=== PATIENT | female | born 1995 | race African-American/Black ===

== ENCOUNTER 2017-05-31 21:15 | Emergency (ER) | payer BC, OTHER, SELFPAY ==
[2017-05-31] MEDS ORDERED: Ondansetron ODT 4 MG TAB ONE (21:50)
[2017-05-31 22:00] LABS: Bilirubin Negative (Negative); Blood, Urine Negative (Negative); Glucose, Urine (Dipstick) Negative (Negative); Ketone, Urine Negative (Negative); Nitrite Negative (Negative); Protein, Urine (Dipstick) Negative (Neg-Trace)
== END 2017-05-31 22:18 | disposition home or self-care (01) ==
LOC: ERS 21:15
DX: R11.0 Nausea (principal); R51 Headache; R42 Dizziness and giddiness; R10.9 Unspecified abdominal pain; F31.9 Bipolar disorder, unspecified
CPT/HCPCS: 36416; 81003; 81025; 99284; Q0162

== ENCOUNTER 2017-11-12 23:49 | Emergency (ER) | payer SELFPAY ==
[2017-11-13] MEDS ORDERED: Ibuprofen 800 MG TAB ONE (00:26)
[2017-11-13 00:51] LABS: Bilirubin Negative (Negative); Blood, Urine Negative (Negative); Clarity CLEAR (Clear); Glucose, Urine (Dipstick) Negative (Negative); Leukocyte Negative (Negative); Nitrite Negative (Negative); Pregnancy Test - Urine (BHCG) Negative (Negative); Pregu Control Background? CLEAR/WHITE (CLR/WHITE); Pregu Control Bar Appear? YES (CONTROL BAR); Protein, Urine (Dipstick) Negative (Neg-Trace); Specific Gravity, Urine 1.022 (1.002-1.036); pH, Urine 7.5 (5.0-9.0)
[2017-11-13 00:52] LABS: Specific Gravity 1.022 (1.002-1.036)
[2017-11-13 18:00] LABS: Chlamydia by PCR Not Detected (NotDetected); GC by PCR Not Detected (NotDetected)
== END 2017-11-13 02:33 | disposition home or self-care (01) ==
LOC: ERS 23:49
DX: F31.9 Bipolar disorder, unspecified; N76.0 Acute vaginitis; F41.9 Anxiety disorder, unspecified; I10 Essential (primary) hypertension
CPT/HCPCS: 81003; 81025; 87480; 87491; 87510; 87591; 87660; 99284

== ENCOUNTER 2018-01-30 01:12 | Emergency (ER) | payer OTHER, SELFPAY ==
[2018-01-30 02:13] LABS: #Eosinphils 0.1 thou/uL (0.0-0.7); #Lymphocytes 2.4 thou/uL (1.20-3.40); #Monocytes 0.6 thou/uL (0.11-0.59); #Neutrophils 5.6 thou/uL (1.40-6.50); %Basophils 0.5 % (0.0-1.0); %Eosinophils 0.8 % (0.0-10.0); %Lymphocytes 27.4 % (21.0-51.0); %Monocytes 6.8 % (0.0-10.0); %Neutrophils 64.4 % (42.0-75.0); Mean Corpuscular HGB CONC 35.9 g/dL (32.0-36.0); Mean Corpuscular Hemoglobin 32.1 pg (27.0-31.0); Mean Corpuscular Volume 89.6 fL (78.0-98.0); Mean Platelet Volume 7.2 fL (7.4-10.4); Platelet Count 213 thou/uL (130-400); RBC Distribution Width 12.1 % (11.5-14.5); Red Blood Cell (RBC) Count 3.74 mill/uL (4.20-5.40); White Blood Cell (WBC) Count 8.7 thou/uL (4.8-10.8)
[2018-01-30 02:34] LABS: ALT (SGPT) 13 U/L (8-55); AST (SGOT) 14 U/L (5-34); Albumin 4.2 g/dL (3.5-5.0); Alkaline Phosphatase 79 U/L (40-150); Anion Gap 10 mmol/L (10-20); BUN (Urea Nitrogen) 7 mg/dL (7.0-18.7); Bilirubin, Total 0.5 mg/dL (0.2-1.2); Calc. Creatinine Clearance 0 mL/min (70-130); Calcium 9.3 mg/dL (7.8-10.44); Carbon Dioxide 23 mmol/L (22-29); Chloride 104 mmol/L (98-107); Estimated GFR-MDRD Greater than 90; Globulin 2.8 g/dL (2.4-3.5); Glucose 88 mg/dL (70-105); Potassium 3.7 mmol/L (3.5-5.1); Sodium 133 mmol/L (136-145)
[2018-01-30] MEDS ORDERED: Acetaminophen 500 MG TAB ONE (02:49)
[2018-01-30 03:04] LABS: Bilirubin Negative (Negative); Blood, Urine Negative (Negative); Clarity CLEAR (Clear); Glucose, Urine (Dipstick) Negative (Negative); Leukocyte Negative (Negative); Nitrite Negative (Negative); Protein, Urine (Dipstick) Negative (Neg-Trace); Specific Gravity, Urine 1.007 (1.002-1.036); Urobilinogen 0.2 mg/dL (0.2-1.0)
== END 2018-01-30 03:30 | disposition home or self-care (01) ==
LOC: ERS 01:12
DX: O99.89 Other specified diseases and conditions complicating pregnancy, childbirth and the puerperium (principal); R10.30 Lower abdominal pain, unspecified; Z3A.09 9 weeks gestation of pregnancy; O10.911 Unspecified pre-existing hypertension complicating pregnancy, first trimester; O99.341 Other mental disorders complicating pregnancy, first trimester; F31.9 Bipolar disorder, unspecified; F41.9 Anxiety disorder, unspecified
CPT/HCPCS: 36415; 80053; 81003; 84702; 85025; 86900; 86901

== ENCOUNTER 2018-03-17 04:10 | Emergency (ER) | payer OTHER ==
[2018-03-17] MEDS ORDERED: Acetaminophen 500 MG TAB ONE (04:34)
[2018-03-17] MEDS ORDERED: Famotidine/PF 20 mg/2ml Vial ONE (04:34)
[2018-03-17] MEDS ORDERED: Metoclopramide HCl 10 MG/2 ML VIAL ONE (04:34)
[2018-03-17 05:21] LABS: #Eosinphils 0.2 thou/uL (0.0-0.7); #Lymphocytes 2.3 thou/uL (1.20-3.40); #Monocytes 0.6 thou/uL (0.11-0.59); %Basophils 0.1 % (0.0-1.0); %Eosinophils 2.2 % (0.0-10.0); %Lymphocytes 28.5 % (21.0-51.0); %Neutrophils 62.2 % (42.0-75.0); Hemoglobin 12.1 g/dL (12.0-16.0); Mean Corpuscular HGB CONC 35.3 g/dL (32.0-36.0); Mean Corpuscular Hemoglobin 31.7 pg (27.0-31.0); Mean Corpuscular Volume 89.6 fL (78.0-98.0); Platelet Count 196 thou/uL (130-400); RBC Distribution Width 12.1 % (11.5-14.5); Red Blood Cell (RBC) Count 3.82 mill/uL (4.20-5.40); White Blood Cell (WBC) Count 8.1 thou/uL (4.8-10.8)
[2018-03-17 05:34] LABS: ALT (SGPT) 10 U/L (8-55); AST (SGOT) 16 U/L (5-34); Albumin 3.8 g/dL (3.5-5.0); Alkaline Phosphatase 60 U/L (40-150); Anion Gap 12 mmol/L (10-20); BUN (Urea Nitrogen) 7 mg/dL (7.0-18.7); Bilirubin, Total 0.3 mg/dL (0.2-1.2); Calc. Creatinine Clearance 0 mL/min (70-130); Calcium 9.1 mg/dL (7.8-10.44); Carbon Dioxide 20 mmol/L (22-29); Chloride 106 mmol/L (98-107); Estimated GFR-MDRD Greater than 90; Globulin 2.9 g/dL (2.4-3.5); Glucose 87 mg/dL (70-105); Potassium 3.8 mmol/L (3.5-5.1); Protein, Total 6.7 g/dL (6.0-8.3); Sodium 134 mmol/L (136-145)
[2018-03-17 05:35] LABS: Bilirubin Negative (Negative); Blood, Urine Negative (Negative); Clarity CLEAR (Clear); Glucose, Urine (Dipstick) Negative (Negative); Leukocyte Moderate (Negative); Nitrite Negative (Negative); Protein, Urine (Dipstick) Negative (Neg-Trace); Specific Gravity, Urine 1.006 (1.002-1.036); Urobilinogen 0.2 mg/dL (0.2-1.0); pH, Urine 7.5 (5.0-9.0)
[2018-03-17 05:38] LABS: Bacteria/HPF None Seen HPF (None Seen); Hyaline Casts/LPF 0-3 HYALINE CAST LPF (0-3 Hyaline); Pathc Cast-AUWi Flag 0.29 (0-2.49); RBC/HPF 0-3 HPF (0-3); Squamous Epithelial 0-3 HPF (0-3)
[2018-03-17] MEDS ORDERED: Nitrofurantoin Monohyd/M-Cryst 100 MG CAP PO SCH (06:30)
== END 2018-03-17 06:51 | disposition home or self-care (01) ==
LOC: ERS 04:10
DX: O23.42 Unspecified infection of urinary tract in pregnancy, second trimester (principal); O16.2 Unspecified maternal hypertension, second trimester; O99.342 Other mental disorders complicating pregnancy, second trimester; F31.9 Bipolar disorder, unspecified; F41.9 Anxiety disorder, unspecified; Z79.899 Other long term (current) drug therapy; Z3A.16 16 weeks gestation of pregnancy
CPT/HCPCS: 80053; 81003; 81015; 85025; 87077; 87086; 96361; 96374; 96375; J2765; S0028

== ENCOUNTER 2018-05-01 10:40 | Emergency (ER) | payer OTHER ==
[2018-05-01 13:18] LABS: #Eosinphils 0.1 thou/uL (0.0-0.7); #Lymphocytes 1.3 thou/uL (1.20-3.40); #Monocytes 0.4 thou/uL (0.11-0.59); #Neutrophils 5.6 thou/uL (1.40-6.50); %Basophils 0.3 % (0.0-1.0); %Eosinophils 1.1 % (0.0-10.0); %Lymphocytes 17.3 % (21.0-51.0); %Monocytes 5.4 % (0.0-10.0); Mean Corpuscular HGB CONC 34.2 g/dL (32.0-36.0); Mean Corpuscular Hemoglobin 31.7 pg (27.0-31.0); Mean Corpuscular Volume 92.6 fL (78.0-98.0); Mean Platelet Volume 7.1 fL (7.4-10.4); Platelet Count 212 thou/uL (130-400); RBC Distribution Width 12.3 % (11.5-14.5); White Blood Cell (WBC) Count 7.4 thou/uL (4.8-10.8)
[2018-05-01] MEDS ORDERED: Lorazepam 1 MG TAB ONE (13:30)
[2018-05-01] MEDS ORDERED: Acetaminophen 500 MG TAB ONE (13:37)
[2018-05-01 13:43] LABS: ALT (SGPT) 8 U/L (8-55); AST (SGOT) 16 U/L (5-34); Albumin 3.6 g/dL (3.5-5.0); Alkaline Phosphatase 79 U/L (40-150); Anion Gap 8 mmol/L (10-20); BUN (Urea Nitrogen) 5 mg/dL (7.0-18.7); Bilirubin, Total 0.5 mg/dL (0.2-1.2); Calc. Creatinine Clearance 0 mL/min (70-130); Calcium 9.1 mg/dL (7.8-10.44); Carbon Dioxide 24 mmol/L (22-29); Chloride 105 mmol/L (98-107); Estimated GFR-MDRD Greater than 90; Globulin 3.4 g/dL (2.4-3.5); Glucose 106 mg/dL (70-105); Magnesium 1.7 mg/dL (1.6-2.6); Potassium 3.4 mmol/L (3.5-5.1); Sodium 134 mmol/L (136-145)
[2018-05-01 13:51] LABS: Bilirubin Negative (Negative); Blood, Urine Negative (Negative); Clarity CLEAR (Clear); Glucose, Urine (Dipstick) Negative (Negative); Leukocyte Negative (Negative); Nitrite Negative (Negative); Protein, Urine (Dipstick) Negative (Neg-Trace); pH, Urine 7.5 (5.0-9.0)
[2018-05-01 13:57] LABS: Troponin I Less than 0.010 ng/mL (< 0.028)
--- NOTE | 2018-05-01 14:40 | RAD ---
CHEST 2 VIEWS: HISTORY: Pain. Chest pressure. COMPARISON: None. FINDINGS: Normal cardiac silhouette. The pulmonary vessels and hilum are normal. Costophrenic angles are mukesh r. No mass. No consolidation. No pneumothorax or osseous abnormalities. IMPRESSION: No acute cardiopulmonary process. POS: [facility]
== END 2018-05-01 14:50 | disposition home or self-care (01) ==
LOC: ERS 10:40
DX: O99.342 Other mental disorders complicating pregnancy, second trimester (principal); F41.0 Panic disorder [episodic paroxysmal anxiety]; I10 Essential (primary) hypertension; F41.9 Anxiety disorder, unspecified; F31.9 Bipolar disorder, unspecified; Z79.899 Other long term (current) drug therapy; Z3A.22 22 weeks gestation of pregnancy
CPT/HCPCS: 36415; 71046; 80053; 81003; 83735; 83880; 84484; 85025; 93005

== ENCOUNTER 2018-07-19 22:44 | Day surgery (SDC) | payer OTHER ==
[2018-07-19 23:24] VITALS: BMI 29.4
--- NOTE | 2018-07-19 23:46 | PDOC.LDHP ---
Labor and Delivery H&P HPI: Patient of Dr Fajardo Location: Triage Tiem: [id number] CC: Contractions 22 yo with prior in past, at 34 weeks 2 days here with possible contractions. No LOF, good FM, no VB. No recent trauama. Was checked this am in the clinic and was closed. Review of Systems: complete ROS performed and negative as per HPI Current gestational age (weeks): 34 (2 days) Dating criteria: last menstrual period Grav: 3 Para: 1 OB History Details: Hx Current complications: none Abnormal US findings: No Past Medical History: HX Bipolar; not on meds (no acute sxs) Current medications: pre-chris vitamins Allergies/Adverse Reactions: Allergies Allergy/AdvReac Type Severity Reaction Status Date / Time metronidazole [From Flagyl] Allergy Rash Verified 07/19/18 23:15 - Physical Exam Vital signs reviewed and normal: yes (107/62 89 afebrile 100% O2 sat on RA) General: NAD Heart: RRR Lungs: CTAB Abdomen: gravid Extremeties: no edema FHT: category 1 [place] contractions every: irritablity - Vaginal Exam cm dilated: 0 Effacement: 0% Station: -2 - Assessment Discomforts of ; [place] CTX - Plan Plan: observation in L&D (Offer pain meds prn; no evidence dilation;l normotensive; ok for outpatient care)
== END 2018-07-20 00:05 | disposition home or self-care (01) ==
LOC: L&D/OP 22:44
PROVIDERS: ATTEND Family Medicine
DX: O47.03 False labor before 37 completed weeks of gestation, third trimester (principal); O99.343 Other mental disorders complicating pregnancy, third trimester; F31.9 Bipolar disorder, unspecified; Z88.1 Allergy status to other antibiotic agents; Z3A.34 34 weeks gestation of pregnancy
CPT/HCPCS: 99282

== ENCOUNTER 2018-08-12 15:35 | Day surgery (SDC) | payer OTHER ==
[2018-08-12 16:13] VITALS: BP 114/65; TEMP 98.3; BMI 29.4
[2018-08-12] MEDS ORDERED: Acetaminophen 500 MG TAB PO SCH (17:15)
--- NOTE | 2018-08-12 17:16 | PDOC.LDHP ---
Labor and Delivery H&P Chief complaint: abdominal pain HPI: 23 yo at 37.5w by reported 1T macarena presents to L&D with 2 days of abdominal pain. She reports the pain is in her lower abdomen and is a cramping pain but feels constant. She is also feeling superimposed contractions irregularly. She denies any vaginal bleeding, dysuria, hematuria and endorses good movement. She also has had a headache since yesterday that has not improved with Tylenol. She states she has had some spots in her vision all . She had gestational HTN in prior . PMHx: GHTN in prior , anemia, depression, anxiety, bipolar (on no meds) PSHx: D&C FHx: DM, HTN, Breast CA in maternal grandmother ALL: Metronidazole (rash) SocHx: Denies tobacco, alcohol, drug use Medications: PNV, iron, teraconazole ROS: 10 point ROS negative apart from what is specified in HPI Current gestational age (weeks): 37 (37.5) Due date: 08/28/18 Dating criteria: first trimester ultrasound Grav: 3 Para: 1 (1011) Current complications: other (gc/chl (s/p reported test of cure)) Abnormal US findings: No Current medications: pre-chris vitamins, iron Previous surgical history: dilation and curettage Allergies/Adverse Reactions: Allergies Allergy/AdvReac Type Severity Reaction Status Date / Time metronidazole [From Flagyl] Allergy Rash Verified 08/12/18 16:14 Social history: none - Physical Exam Vital signs reviewed and normal: yes General: resting, other (moving around with abdominal pain) Heart: RRR Lungs: CTAB Abdomen: other (TTP in BL lower quadrants) Extremeties: no edema FHT: category 1 [place] contractions every: 10 minutes - Vaginal Exam cm dilated: 0 (soft, midposition) Station: -3 - OB Labs Blood type: unknown RH: unknown Antibody Screen: unknown HIV: unknown RPR: unknown HEPSAg: unknown 1 hour GCT: unknown GBS: unknown - Assessment A/P: 23 yo at 37.5w by 1T macarena here with lower abdominal pain 1. Lower abdominal pain/back pain - Likely round ligament pain and intermittent contractions - Will give 1g Tylenol and PO hydrate - Continue to monitor for contractions - UA and VP3 pending 2. Anxiety/depression/bipolar - Not on meds this - Denies SI/HI 3. H/o gHTN - BP all WNL here Dispo: Awaiting lab results and toco after PO hydration
[2018-08-12 17:58] LABS: Bilirubin Negative (Negative); Blood, Urine Negative (Negative); Clarity CLEAR (Clear); Glucose, Urine (Dipstick) Negative (Negative); Leukocyte Trace (Negative); Nitrite Negative (Negative); Protein, Urine (Dipstick) Negative (Neg-Trace); Specific Gravity, Urine 1.003 (1.002-1.036); pH, Urine 7.5 (5.0-9.0)
[2018-08-12 18:01] LABS: Bacteria/HPF None Seen HPF (None Seen); Hyaline Casts/LPF 0-3 HYALINE CAST LPF (0-3 Hyaline); Pathc Cast-AUWi Flag 0.29 (0-2.49); RBC/HPF 0-3 HPF (0-3); WBC/HPF 0-3 HPF (0-3)
[2018-08-12 19:07] LABS: Bilirubin Negative (Negative); Blood, Urine Moderate (Negative); Clarity CLEAR (Clear); Glucose, Urine (Dipstick) Negative (Negative); Leukocyte Negative (Negative); Nitrite Negative (Negative); Protein, Urine (Dipstick) Negative (Neg-Trace); Specific Gravity, Urine 1.003 (1.002-1.036); pH, Urine 7.5 (5.0-9.0)
[2018-08-12 19:13] LABS: Bacteria/HPF None Seen HPF (None Seen); Hyaline Casts/LPF 0-3 HYALINE CAST LPF (0-3 Hyaline); Pathc Cast-AUWi Flag 0.58 (0-2.49); RBC/HPF None Seen HPF (0-3); Squamous Epithelial 0-3 HPF (0-3); WBC/HPF None Seen HPF (0-3)
--- NOTE | 2018-08-12 19:27 | PDOC.EVN ---
Event Note - Event Note Event Note: UA and VP3 reviewed and WNL. Pain improved with hydration, rest and Tylenol. Recommended belly support band. Discussed return precautions and patient feels comfortable to go home.
[2018-08-14 01:23] LABS: Chlamydia by PCR Not Detected (NotDetected); GC by PCR Not Detected (NotDetected)
== END 2018-08-12 19:25 | disposition home or self-care (01) ==
LOC: L&D/OP 15:35
PROVIDERS: ATTEND Family Medicine
DX: O99.89 Other specified diseases and conditions complicating pregnancy, childbirth and the puerperium (principal); R10.30 Lower abdominal pain, unspecified; O99.343 Other mental disorders complicating pregnancy, third trimester; F31.9 Bipolar disorder, unspecified; F41.9 Anxiety disorder, unspecified; Z3A.37 37 weeks gestation of pregnancy; Z79.899 Other long term (current) drug therapy; Z88.1 Allergy status to other antibiotic agents
CPT/HCPCS: 51701; 81003; 81015; 87480; 87491; 87510; 87591; 87660; 99285; A4353

== ENCOUNTER → 2018-08-15 | Day surgery (SDC) | payer OTHER ==
[~2018-08-15] MED LIST: Ondansetron ODT 8 MG TAB PO SCH
[2018-08-15 16:07] VITALS: BMI 29.9
--- NOTE | 2018-08-15 19:15 | ULT ---
BIOPHYSICAL PROFILE 08/15/18 PROVIDED CLINICAL HISTORY: Decreased movement. FINDINGS: Single live intrauterine gestation is documented in cephalic presentation with heart rate of 136 beat s per minute. Amniotic fluid index is calculated at 16.2. The placenta appears anteriorly located wit hout evidence for previa. tone: 2/2 breathin/2 movement: 2/2 Amniotic fluid: 2/2 Total: 03/15 IMPRESSION: Normal biophysical profile. POS: [facility]
== END ==
LOC: L&D/OP 15:21
PROVIDERS: ATTEND Family Medicine
DX: O36.8190 Decreased fetal movements, unspecified trimester, not applicable or unspecified (principal); O21.9 Vomiting of pregnancy, unspecified; Z79.899 Other long term (current) drug therapy; Z88.8 Allergy status to other drugs, medicaments and biological substances
CPT/HCPCS: 76819; 99282

== ENCOUNTER 2018-08-30 23:00 | Inpatient (IN) | payer OTHER ==
[2018-08-30] MEDS ORDERED: Misoprostol 200 MCG TAB PR PRN (23:43)
[2018-08-30] MEDS ORDERED: HYDROcodone/Acetaminophen 5/325 mg Tablet PO PRN (23:43)
[2018-08-30] MEDS ORDERED: Penicillin G Potassium 5 MILL.UNITS in Sodium Chloride 0.9% 100 ML IVPB SCH (23:43)
[2018-08-30] MEDS ORDERED: Ibuprofen 800 MG TAB PO PRN (23:43)
[2018-08-30] MEDS ORDERED: Diphenoxylate HCl/Atropine Tablet PO PRN (23:43)
[2018-08-30] MEDS ORDERED: NS w/ Oxytocin 10 units 500 ML IV SCH (23:43)
[2018-08-30] MEDS ORDERED: Methylergonovine 0.2 MG/ML VIAL IM PRN (23:43)
[2018-08-30] MEDS ORDERED: Lidocaine 1% (PF) 30 ML VIAL SC PRN (23:43)
[2018-08-30] MEDS ORDERED: Carboprost 250 MCG/ML AMP IM PRN (23:43)
[2018-08-31 00:06] VITALS: BMI 31.3
[2018-08-31] MEDS: Lactated Ringer's 1,000 ML IV SCH ×3 (00:22→20:20)
[2018-08-31 00:46] LABS: Hemoglobin 9.7 g/dL (12.0-16.0); Mean Corpuscular HGB CONC 33.4 g/dL (32.0-36.0); Mean Corpuscular Hemoglobin 28.8 pg (27.0-31.0); Mean Corpuscular Volume 86.5 fL (78.0-98.0); Mean Platelet Volume 8.5 fL (7.4-10.4); Platelet Count 187 thou/uL (130-400); RBC Distribution Width 12.5 % (11.5-14.5); Red Blood Cell (RBC) Count 3.36 mill/uL (4.20-5.40); White Blood Cell (WBC) Count 8.8 thou/uL (4.8-10.8)
[2018-08-31] MEDS ORDERED: cefTRIAXone\\ROCEPHIN 250 MG VIAL IM SCH (01:15)
[2018-08-31] MEDS ORDERED: Lidocaine 1% PF 5 ML VIAL FS SCH (01:15)
[2018-08-31] MEDS ORDERED: Azithromycin 250 MG TAB PO SCH (01:15)
[2018-08-31 01:26] LABS: HBSAg Index 0.21 S/CO (0-0.99); Hep B Surf Ag Non-Reactive S/CO (NonReactive)
[2018-08-31] MEDS: Ondansetron PF 4 MG/2 ML Vial IVP PRN (04:29)
[2018-08-31 05:25] LABS: Syphilis Antibody Nonreactive (Nonreactive); Syphilis Antibody Index 0.05 S/CO (<1.00 Non-Reactive)
[2018-08-31] MEDS: Misoprostol 100 MCG TAB PO SCH ×3 (08:33→17:07)
[2018-08-31] MEDS ORDERED: Penicillin G Potassium 5 MILL.UNITS in Sodium Chloride 0.9% 100 ML IVPB SCH (12:30)
[2018-08-31] MEDS: Penicillin G 2.5 MILL.units 2.5 MILL.UNITS in Premix Bag 1 BAG IVPB SCH ×4 (12:41→22:02)
[2018-08-31] MEDS ORDERED: Misoprostol 100 MCG TAB ONE (17:05)
[2018-08-31] MEDS: NS w/ Oxytocin 10 units 500 ML IV SCH (22:02)
[2018-09-01] MEDS: NS w/ Oxytocin 10 units 500 ML IV SCH (00:03)
[2018-09-01] MEDS: Lactated Ringer's 1,000 ML IV SCH ×3 (02:08→17:54)
[2018-09-01] MEDS: Penicillin G 2.5 MILL.units 2.5 MILL.UNITS in Premix Bag 1 BAG IVPB SCH ×5 (02:53→19:10)
[2018-09-01] MEDS ORDERED: Penicillin G Potassium 5 MILL.UNITS in Sodium Chloride 0.9% 100 ML IVPB SCH (03:00)
[2018-09-01] MEDS: Misoprostol 100 MCG TAB PO SCH ×3 (03:17→15:11)
[2018-09-01] MEDS: Butorphanol Tartrate 1 MG/ML VIAL SLOW IVP PRN ×2 (03:27→08:11)
[2018-09-01] MEDS: Ondansetron PF 4 MG/2 ML Vial IVP PRN ×2 (07:09→21:37)
[2018-09-01] MEDS ORDERED: Lidocaine 1.5%/Epinephrine 1:200,000 5 ML AMPUL IJ ONE (09:28)
[2018-09-01] MEDS ORDERED: Fentanyl 4 mcg/Bup 0.1% Cadd 100 ML ONE ×2 (09:28→16:55)
[2018-09-01] MEDS ORDERED: ePHEDrine/0.9% NaCl/PF SYRINGE 50 mg/10 ml SLOW IVP PRN (09:57)
[2018-09-01] MEDS ORDERED: Naloxone HCl 0.4 mg/ml Vial IVP PRN ×2 (09:57)
[2018-09-01] MEDS ORDERED: Promethazine HCl 25 MG/ML VIAL IM PRN (09:57)
[2018-09-01] MEDS ORDERED: Ondansetron PF 4 MG/2 ML Vial IVP PRN ×2 (09:57→22:22)
[2018-09-01] MEDS ORDERED: diphenhydrAMINE 50 MG/ML VIAL IVP PRN (09:57)
[2018-09-01] MEDS ORDERED: Acetaminophen 325 MG TAB PO PRN (09:57)
[2018-09-01] MEDS ORDERED: Lactated Ringer's 500 ML IV PRN (09:57)
[2018-09-01] MEDS ORDERED: Eucerin (Mineral Oil/Petrolatum,White) 30 gm Jar TOP PRN (09:57)
[2018-09-01] MEDS ORDERED: Fentanyl 4 mcg/Bupivacaine 0.1% Cassette 100 ML EPIDURAL SCH (10:00)
[2018-09-01] MEDS ORDERED: Communication Order-Pharmacy FS SCH (10:00)
[2018-09-01] MEDS: NS / Oxytocin 40 units/1000ml 1,000 ML IV PRN ×2 (20:00→21:16)
[2018-09-01] MEDS ORDERED: diphenhydrAMINE 25 MG CAP PO PRN (22:22)
[2018-09-01] MEDS ORDERED: Bisacodyl 10 MG SUPP PR PRN (22:22)
[2018-09-01] MEDS ORDERED: Milk Of Magnesia 30 ML UDCUP PO PRN (22:22)
[2018-09-01] MEDS ORDERED: Lanolin Ointment 7 GM TUBE TOP PRN (22:22)
[2018-09-01] MEDS ORDERED: HYDROcodone/Acetaminophen 5/325 mg Tablet PO PRN (22:22)
[2018-09-01] MEDS ORDERED: Benzocaine/Menthol 20-0.5% 60 ML CAN TOP PRN (22:22)
[2018-09-01] MEDS ORDERED: NS / Oxytocin 40 units/1000ml 1,000 ML IV SCH (22:22)
[2018-09-02] MEDS: Ibuprofen 800 MG TAB PO SCH ×3 (00:32→18:06)
[2018-09-02] MEDS: Docusate Calcium (SURFAK) 240 MG CAP PO SCH ×3 (00:32→21:24)
[2018-09-02] MEDS: HYDROcodone/Acetaminophen 5/325 mg Tablet PO PRN ×3 (02:34→23:42)
[2018-09-02 05:48] LABS: Hemoglobin 10.2 g/dL (12.0-16.0); Mean Corpuscular HGB CONC 33.2 g/dL (32.0-36.0); Mean Corpuscular Hemoglobin 29.1 pg (27.0-31.0); Mean Corpuscular Volume 87.8 fL (78.0-98.0); Mean Platelet Volume 8.5 fL (7.4-10.4); Platelet Count 172 thou/uL (130-400); RBC Distribution Width 12.7 % (11.5-14.5); Red Blood Cell (RBC) Count 3.52 mill/uL (4.20-5.40); White Blood Cell (WBC) Count 15.4 thou/uL (4.8-10.8)
[2018-09-02] MEDS: Ferrous Sulfate 325 MG TAB PO SCH ×2 (09:08→17:20)
[2018-09-02] MEDS: Prenatal Vitamin 1 TAB PO SCH (09:09)
[2018-09-03] MEDS: Ibuprofen 800 MG TAB PO SCH ×3 (05:48→13:46)
[2018-09-03] MEDS: Prenatal Vitamin 1 TAB PO SCH (08:53)
[2018-09-03] MEDS: HYDROcodone/Acetaminophen 5/325 mg Tablet PO PRN (08:53)
[2018-09-03] MEDS: Docusate Calcium (SURFAK) 240 MG CAP PO SCH (08:53)
[2018-09-03 09:14] VITALS: BP 120/69; TEMP 98.4
[2018-09-03] MEDS: Ferrous Sulfate 325 MG TAB PO SCH (11:49)
== END 2018-09-03 15:40 | disposition home or self-care (01) | DRG 807 ==
LOC: L&D 23:11 → 3SW 09-01 23:31
PROVIDERS: ADMIT Family Medicine; ATTEND Family Medicine
PROC: 3E0P7VZ Introduction of Hormone into Female Reproductive, Via Natural or Artificial Opening (ICD-10-PCS; principal; 2018-08-31)
PROC: 10D07Z6 Extraction of Products of Conception, Vacuum, Via Natural or Artificial Opening (ICD-10-PCS; 2018-09-01)
DX: O76 Abnormality in fetal heart rate and rhythm complicating labor and delivery (principal); Z37.0 Single live birth; O99.824 Streptococcus B carrier state complicating childbirth; Z3A.40 40 weeks gestation of pregnancy
CPT/HCPCS: 36415; 51702; 76815; 85027; 86780; 86850; 86900; 86901; 87340; J0595; J0696; J2001; J2405; J2540; J3490; J7050

== ENCOUNTER 2018-09-08 15:10 | Emergency (ER) | payer OTHER ==
[2018-09-08 16:43] LABS: Bilirubin Negative (Negative); Blood, Urine Small (Negative); Clarity CLEAR (Clear); Glucose, Urine (Dipstick) Negative (Negative); Leukocyte Negative (Negative); Nitrite Negative (Negative); Protein, Urine (Dipstick) Negative (Neg-Trace); Specific Gravity, Urine 1.009 (1.002-1.036)
[2018-09-08 16:45] LABS: Bacteria/HPF None Seen HPF (None Seen); Hyaline Casts/LPF 0-3 HYALINE CAST LPF (0-3 Hyaline); RBC/HPF 0-3 HPF (0-3); Squamous Epithelial None Seen HPF (0-3); WBC/HPF 0-3 HPF (0-3)
[2018-09-08 17:39] LABS: #Eosinphils 0.1 thou/uL (0.0-0.7); #Lymphocytes 2.6 thou/uL (1.20-3.40); #Monocytes 0.4 thou/uL (0.11-0.59); %Basophils 0.3 % (0.0-1.0); %Eosinophils 1.4 % (0.0-10.0); %Lymphocytes 31.8 % (21.0-51.0); %Monocytes 4.8 % (0.0-10.0); %Neutrophils 61.8 % (42.0-75.0); Hemoglobin 10.9 g/dL (12.0-16.0); Mean Corpuscular HGB CONC 32.2 g/dL (32.0-36.0); Mean Corpuscular Hemoglobin 28.1 pg (27.0-31.0); Mean Corpuscular Volume 87.2 fL (78.0-98.0); Mean Platelet Volume 7.2 fL (7.4-10.4); Platelet Count 246 thou/uL (130-400); RBC Distribution Width 13.2 % (11.5-14.5); Red Blood Cell (RBC) Count 3.87 mill/uL (4.20-5.40); White Blood Cell (WBC) Count 8.1 thou/uL (4.8-10.8)
[2018-09-08 18:00] LABS: ALT (SGPT) 42 U/L (8-55); AST (SGOT) 33 U/L (5-34); Albumin 3.8 g/dL (3.5-5.0); Alkaline Phosphatase 238 U/L (40-150); Anion Gap 10 mmol/L (10-20); BUN (Urea Nitrogen) 7 mg/dL (7.0-18.7); Bilirubin, Total 0.4 mg/dL (0.2-1.2); Calc. Creatinine Clearance 0 mL/min (70-130); Calcium 8.8 mg/dL (7.8-10.44); Carbon Dioxide 25 mmol/L (22-29); Chloride 109 mmol/L (98-107); Estimated GFR-MDRD Greater than 90; Globulin 3.1 g/dL (2.4-3.5); Glucose 64 mg/dL (70-105); Potassium 4.3 mmol/L (3.5-5.1); Protein, Total 6.9 g/dL (6.0-8.3); Sodium 140 mmol/L (136-145)
== END 2018-09-08 18:30 | disposition home or self-care (01) ==
LOC: ERS 15:10
DX: O99.89 Other specified diseases and conditions complicating pregnancy, childbirth and the puerperium (principal); M54.5 Low back pain; M54.6 Pain in thoracic spine; F31.9 Bipolar disorder, unspecified; Z79.899 Other long term (current) drug therapy
CPT/HCPCS: 36415; 80053; 81003; 81015; 85025; 87086; 99283

== ENCOUNTER 2018-11-15 23:40 | Emergency (ER) | payer OTHER, SELFPAY ==
[2018-11-16 00:24] LABS: Bilirubin Negative (Negative); Blood, Urine Negative (Negative); Clarity CLEAR (Clear); Glucose, Urine (Dipstick) Negative (Negative); Leukocyte Negative (Negative); Nitrite Negative (Negative); Protein, Urine (Dipstick) Negative (Neg-Trace); Specific Gravity, Urine 1.012 (1.002-1.036); pH, Urine 6.5 (5.0-9.0)
[2018-11-16 00:38] LABS: #Eosinphils 0.4 thou/uL (0.0-0.7); #Lymphocytes 2.4 thou/uL (1.20-3.40); #Monocytes 0.6 thou/uL (0.11-0.59); #Neutrophils 3.5 thou/uL (1.40-6.50); %Basophils 0.5 % (0.0-1.0); %Eosinophils 5.7 % (0.0-10.0); %Lymphocytes 35.3 % (21.0-51.0); %Neutrophils 50.5 % (42.0-75.0); Hemoglobin 11.6 g/dL (12.0-16.0); Mean Corpuscular HGB CONC 32.2 g/dL (32.0-36.0); Mean Corpuscular Hemoglobin 27.7 pg (27.0-31.0); Mean Corpuscular Volume 85.8 fL (78.0-98.0); Platelet Count 213 thou/uL (130-400); RBC Distribution Width 14.3 % (11.5-14.5); Red Blood Cell (RBC) Count 4.19 mill/uL (4.20-5.40); White Blood Cell (WBC) Count 6.8 thou/uL (4.8-10.8)
[2018-11-16 00:56] LABS: ALT (SGPT) 22 U/L (8-55); AST (SGOT) 21 U/L (5-34); Albumin 4.4 g/dL (3.5-5.0); Alkaline Phosphatase 107 U/L (40-150); Anion Gap 12 mmol/L (10-20); BUN (Urea Nitrogen) 8 mg/dL (7.0-18.7); Bilirubin, Total 0.7 mg/dL (0.2-1.2); Calc. Creatinine Clearance 0 mL/min (70-130); Calcium 9.3 mg/dL (7.8-10.44); Carbon Dioxide 28 mmol/L (22-29); Chloride 103 mmol/L (98-107); Estimated GFR-MDRD Greater than 90; Globulin 3.5 g/dL (2.4-3.5); Glucose 88 mg/dL (70-105); Lipase 44 U/L (8-78); Potassium 3.6 mmol/L (3.5-5.1); Protein, Total 7.9 g/dL (6.0-8.3); Sodium 139 mmol/L (136-145)
== END 2018-11-16 03:11 | disposition home or self-care (01) ==
LOC: ERS 23:40
DX: R10.12 Left upper quadrant pain (principal); D64.9 Anemia, unspecified; F31.9 Bipolar disorder, unspecified; F41.9 Anxiety disorder, unspecified
CPT/HCPCS: 36415; 80053; 81003; 83690; 85025; 99284

== ENCOUNTER 2019-12-18 09:53 | Outpatient (CLI) | payer OTHER ==
--- NOTE | 2019-12-18 14:08 | RAD ---
PA AND LATERAL VIEWS OF THE CHEST: 12/18/19 HISTORY: Chest pain. FINDINGS: Comparison is made to exam of 05/01/18. FINDINGS: The cardiomediastinum is normal. The lungs are expanded and clear. The bony thorax is normal. IMPRESSION: Normal exam. POS: [facility]
== END 2019-12-18 09:54 | disposition home or self-care (01) ==
LOC: BICRAD 09:53
DX: R07.89 Other chest pain (principal)
CPT/HCPCS: 71046

== ENCOUNTER 2020-05-07 19:09 | Emergency (ER) | payer OTHER ==
[2020-05-07] MEDS ORDERED: Ketorolac Tromethamine 30 MG/ML VIAL ONE (19:46)
--- NOTE | 2020-05-07 20:21 | RAD ---
XR Knee Lt 4 View STANDARD HISTORY: Left knee pain FINDINGS: No fracture or dislocation is identified.
--- NOTE | 2020-05-07 20:48 | RAD ---
THREE VIEWS LUMBAR SPINE: 05/07/20 HISTORY: Pain. Injury. FINDINGS: Five lumbar type vertebrae. Vertebral body heights are maintained. No fracture. Preserved disc space heights. No spondylolisthesis or spondylolysis. Visualized sacrum and bony pelvis are intact. IMPRESSION: No acute radiographic abnormality of the lumbar spine. POS: [facility]
== END 2020-05-07 20:55 | disposition home or self-care (01) ==
LOC: ERS 19:09
DX: M25.562 Pain in left knee (principal); M54.5 Low back pain; F41.9 Anxiety disorder, unspecified; F31.9 Bipolar disorder, unspecified; F90.9 Attention-deficit hyperactivity disorder, unspecified type; D64.9 Anemia, unspecified
CPT/HCPCS: 72100; 96372; J1885

== ENCOUNTER 2020-05-23 08:02 | Outpatient (CLI) | payer OTHER ==
--- NOTE | 2020-05-23 10:12 | MRI ---
MRI OF LEFT KNEE PERFORMED WITHOUT CONTRAST ENHANCEMENT: HISTORY: Positive Valerio's test. Knee pain. FINDINGS: The anterior as well as posterior cruciate ligaments are intact. The medial and lateral menisci are normal in shape and appearance. The medial and lateral collateral ligaments and iliotibial band regions are unremarkable. The patellar articular cartilage shows some mild edema change involving the lateral facet. The media l lateral patellar retinaculum and quadriceps and patellar tendons are normal. IMPRESSION: 1. No evidence of cruciate ligament or meniscal injury. 2. Some mild chondromalacia change of the lateral facet of the patella. POS: [facility]
--- NOTE | 2020-05-23 10:14 | MRI ---
LUMBAR SPINE MRI WITHOUT IV CONTRAST: Date: 05/23/2020 HISTORY: Low back pain with sciatica, left side. FINDINGS: Conus medullaris region is unremarkable. No evidence for acute abnormal marrow edema. No significant facet arthrosis. T12-L1: Unremarkable. L1-L2: Unremarkable. L2-L3: Unremarkable. L3-L4: Unremarkable. L4-L5: Unremarkable. L5-S1: Unremarkable. IMPRESSION: Unremarkable lumbar spine MRI. No evidence for significant canal, lateral recess, or foraminal stenos is, or other acute process. POS: [facility]
== END 2020-05-23 08:03 | disposition home or self-care (01) ==
LOC: TBSIIMAG 08:02
PROVIDERS: ATTEND Family Medicine
DX: M54.42 Lumbago with sciatica, left side (principal); G89.29 Other chronic pain; S83.207A Unspecified tear of unspecified meniscus, current injury, left knee, initial encounter; M94.262 Chondromalacia, left knee
CPT/HCPCS: 72148

== ENCOUNTER 2021-04-07 | Emergency (ER) | payer OTHER | END 2021-04-08 01:25 | disposition home or self-care (01) ==

== ENCOUNTER 2021-05-24 01:46 | Emergency (ER) | payer OTHER ==
[2021-05-24] MEDS ORDERED: Proparacaine 0.5% Opth 15 ML BOT ONE (02:07)
== END 2021-05-24 02:24 | disposition home or self-care (01) ==
LOC: ERS 01:46
DX: T65.891A Toxic effect of other specified substances, accidental (unintentional), initial encounter (principal); H10.213 Acute toxic conjunctivitis, bilateral
CPT/HCPCS: 99283

== ENCOUNTER 2021-08-04 16:30 | Emergency (ER) | payer OTHER ==
[2021-08-04 17:05] LABS: #Eosinphils 0.1 thou/uL (0.0-0.7); #Lymphocytes 1.9 thou/uL (1.20-3.40); #Monocytes 0.4 thou/uL (0.11-0.59); #Neutrophils 3.2 thou/uL (1.40-6.50); %Basophils 0.7 % (0.0-1.0); %Eosinophils 1.3 % (0.0-10.0); %Lymphocytes 33.6 % (21.0-51.0); %Monocytes 6.6 % (0.0-10.0); %Neutrophils 57.9 % (42.0-75.0); Hemoglobin 13.4 g/dL (12.0-16.0); Mean Corpuscular HGB CONC 33.2 g/dL (32.0-36.0); Mean Corpuscular Hemoglobin 30.4 pg (27.0-31.0); Mean Corpuscular Volume 91.7 fL (78.0-98.0); Mean Platelet Volume 7.9 fL (7.4-10.4); Platelet Count 199 thou/uL (130-400); Red Blood Cell (RBC) Count 4.42 mill/uL (4.20-5.40); White Blood Cell (WBC) Count 5.6 thou/uL (4.8-10.8)
[2021-08-04 17:14] LABS: BHCG - Serum POSITIVE (NEGATIVE); Pregs Control Background? CLEAR/WHITE (CLR/WHITE); Pregs Control Bar Appear? YES (CONTROL BAR)
[2021-08-04 18:01] LABS: Bacteria/HPF None Seen HPF (None Seen); Bilirubin Negative (Negative); Blood, Urine Negative (Negative); Clarity Clear (Clear); Glucose, Urine (Dipstick) Normal (Negative); Ketone, Urine Negative (Negative); Leukocyte 25 Leu/uL (Negative); Nitrite Negative (Negative); Protein, Urine (Dipstick) Negative (Neg-Trace); RBC/HPF None Seen HPF (0-3); Specific Gravity, Urine 1.015 (1.002-1.036); Squamous Epithelial 0-3 HPF (0-3); Urobilinogen Normal mg/dL (Less than 2); WBC/HPF 0-3 HPF (0-3); pH, Urine 6.5 (5.0-9.0)
[2021-08-04 18:04] LABS: ALT (SGPT) 19 U/L (8-55); AST (SGOT) 21 U/L (5-34); Albumin 4.1 g/dL (3.5-5.0); Alkaline Phosphatase 77 U/L (40-110); Anion Gap 12 mmol/L (10-20); BUN (Urea Nitrogen) 6 mg/dL (7.0-18.7); Bilirubin, Total 0.6 mg/dL (0.2-1.2); Calc. Creatinine Clearance 0 mL/min (70-130); Calcium 9.6 mg/dL (7.8-10.44); Carbon Dioxide 23 mmol/L (22-29); Chloride 105 mmol/L (98-107); Globulin 3.7 g/dL (2.4-3.5); Glucose 95 mg/dL (70-105); Potassium 3.7 mmol/L (3.5-5.1); Protein, Total 7.8 g/dL (6.0-8.3); Sodium 136 mmol/L (136-145)
[2021-08-04] MEDS ORDERED: Acetaminophen 500 MG TAB ONE (18:43)
== END 2021-08-04 20:23 | disposition home or self-care (01) ==
LOC: ERS 16:30
DX: O99.891 Other specified diseases and conditions complicating pregnancy (principal); R42 Dizziness and giddiness; O99.019 Anemia complicating pregnancy, unspecified trimester; D64.9 Anemia, unspecified; Z3A.00 Weeks of gestation of pregnancy not specified
CPT/HCPCS: 36415; 76856; 80053; 81003; 81015; 84702; 84703; 85025; 93005; 93976

== ENCOUNTER 2021-12-15 17:46 | Emergency (ER) | payer OTHER ==
[2021-12-15 18:41] LABS: #Eosinphils 0.1 thou/uL (0.0-0.7); #Monocytes 0.8 thou/uL (0.11-0.59); #Neutrophils 6.6 thou/uL (1.40-6.50); %Basophils 0.1 % (0.0-1.0); %Eosinophils 0.6 % (0.0-10.0); %Lymphocytes 21.4 % (21.0-51.0); %Monocytes 8.4 % (0.0-10.0); %Neutrophils 69.4 % (42.0-75.0); Hemoglobin 12.6 g/dL (12.0-16.0); Mean Corpuscular HGB CONC 34.5 g/dL (32.0-36.0); Mean Corpuscular Hemoglobin 32.2 pg (27.0-31.0); Mean Corpuscular Volume 93.4 fL (78.0-98.0); Mean Platelet Volume 7.4 fL (7.4-10.4); Platelet Count 217 thou/uL (130-400); RBC Distribution Width 12.2 % (11.5-14.5); Red Blood Cell (RBC) Count 3.92 mill/uL (4.20-5.40); White Blood Cell (WBC) Count 9.4 thou/uL (4.8-10.8)
[2021-12-15 19:00] LABS: ALT (SGPT) 11 U/L (8-55); AST (SGOT) 24 U/L (5-34); Albumin 3.9 g/dL (3.5-5.0); Alkaline Phosphatase 99 U/L (40-110); Anion Gap 11 mmol/L (10-20); BUN (Urea Nitrogen) 4 mg/dL (7.0-18.7); Bilirubin, Total 0.6 mg/dL (0.2-1.2); Calc. Creatinine Clearance 0 mL/min (70-130); Calcium 9.1 mg/dL (7.8-10.44); Carbon Dioxide 24 mmol/L (22-29); Chloride 104 mmol/L (98-107); Globulin 3.8 g/dL (2.4-3.5); Glucose 68 mg/dL (70-105); Potassium 4.1 mmol/L (3.5-5.1); Protein, Total 7.7 g/dL (6.0-8.3); Sodium 135 mmol/L (136-145)
== END 2021-12-15 19:07 | disposition short-term general hospital (02) ==
LOC: ERS 17:46
DX: O99.891 Other specified diseases and conditions complicating pregnancy (principal); R10.84 Generalized abdominal pain; Z3A.23 23 weeks gestation of pregnancy
CPT/HCPCS: 80053; 85025; 86900; 86901; 99284

== ENCOUNTER 2024-05-08 21:53 | Emergency (ER) | payer OTHER, SELFPAY ==
[2024-05-08 23:49] LABS: Influenza A by NAA Not Detected (NotDetected); Influenza B by NAA Not Detected (NotDetected); SARS-CoV-2 NAA Rapid Test Not Detected (NotDetected)
[2024-05-09] MEDS ORDERED: Pseudoephedrine HCl 30 MG TAB PO SCH (04:00)
[2024-05-09] MEDS ORDERED: Ketorolac Tromethamine 30 MG (1 mL) VIAL ONE (04:07)
[2024-05-09] MEDS ORDERED: Dexamethasone 10 MG/ML VIAL ONE (04:07)
== END 2024-05-09 04:56 | disposition home or self-care (01) ==
LOC: ERS 21:53
DX: B34.9 Viral infection, unspecified (principal); J02.9 Acute pharyngitis, unspecified
CPT/HCPCS: 71045; 87081; 87430; 96372; J1100; J1885